=== PATIENT | male | born 1990 | race Caucasian/White ===

== ENCOUNTER 2017-12-01 17:06 | Emergency (ER) | payer BC ==
[~2017-12-01] VITALS: Ht 185.4 cm; Wt 72.6 kg
[2017-12-01 17:28] VITALS: BP 131/97
[2017-12-01 18:42] LABS: BASOPHILS % (AUTO) 0.6 % (0.0-2.0); EOSINOPHILS # (AUTO) 0.2 K/uL (0-0.4); EOSINOPHILS % (AUTO) 1.9 % (0.0-4.0); HEMATOCRIT 46.8 % (36-52); HEMOGLOBIN 15.7 g/dL (12.0-18.0); LYMPHOCYTES # (AUTO) 1.8 K/uL (2.0-11.5); LYMPHOCYTES % (AUTO) 22.2 % (20.5-51.1); MEAN CORPUSCULAR HEMOGLOBIN 29 pg (27-31); MEAN CORPUSCULAR HGB CONC 34 g/dL (33-37); MEAN CORPUSCULAR VOLUME 87.7 fL (80-94); MONOCYTES # (AUTO) 0.9 K/uL (0.8-1.0); MONOCYTES % (AUTO) 11.8 % (1.7-9.3); NEUTROPHILS # (AUTO) 5.1 K/uL (1.8-7.7); NEUTROPHILS % (AUTO) 63.5 % (42.2-75.2); PLATELET COUNT (AUTO) 205 K/uL (140-450); RED BLOOD CELL COUNT(AUTO) 5.34 MIL/uL (4.20-6.10); RED CELL DISTRIBUTION WIDTH 13.3 % (11.6-13.7)
[2017-12-01 19:03] LABS: ALBUMIN 4.7 g/dL (3.4-5.0); ANION GAP 14.4 (8-16); CARBON DIOXIDE 23.5 mmol/L (21-32); POTASSIUM 3.9 mmol/L (3.5-5.1); TOTAL BILIRUBIN 3.8 mg/dL (0.0-1.0)
--- NOTE | 2017-12-01 19:45 | NUR ---
PT AMBULATED TO ED BED 11
--- NOTE | 2017-12-01 19:45 | NUR ---
26/M CAME IN W C/O SEVERAL EPISODES OF N/V/D X 2 DAYS. PT DENIES ANY PAIN AT THIS TIME. BS ACTIVE X4, ABD SOFT, ROUND, -TENDERNESS. DENIES FEVER/CHILLS. PMH: DEGENERATIVE JOINT DISEASE.
[2017-12-01] MEDS ORDERED: ONDANSETRON 4 MG ODT PO ONE (20:40)
--- NOTE | 2017-12-01 22:00 | NUR ---
Patient discharged with v/s stable. Written and verbal after care instructions given and explained. Patient alert, oriented and verbalized understanding of instructions. Ambulatory with steady gait. All questions addressed prior to discharge. ID band removed. Patient advised to follow up with PMD. Rx of ZOFRAN 4 MG ODT given. Patient educated on indication of medication including possible reaction and side effects. Opportunity to ask questions provided and answered.
[2017-12-01 22:06] VITALS: BP 129/60
== END 2017-12-01 22:00 | disposition home or self-care (01) ==
LOC: MED 17:06
DX: E80.6 Other disorders of bilirubin metabolism (principal); R11.0 Nausea; F17.200 Nicotine dependence, unspecified, uncomplicated; F12.10 Cannabis abuse, uncomplicated
CPT/HCPCS: 36415; 76705; 80053; 81002; 83690; 85025; 99285; Q0092; S0119

== ENCOUNTER 2017-12-20 17:49 | Emergency (ER) | payer BC ==
[~2017-12-20] VITALS: Ht 185.4 cm; Wt 72.6 kg
--- NOTE | 2017-12-20 18:05 | NUR ---
PT AMBULATES TO BED 11
[2017-12-20 18:11] VITALS: BP 142/80
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
--- NOTE | 2017-12-20 18:31 | NUR ---
PATIENT MOVED TO CHAIR E
--- NOTE | 2017-12-20 19:14 | NUR ---
REPORT GIVEN TO VU GARCIA.
--- NOTE | 2017-12-20 20:09 | NUR ---
PT RETURNED FROM XRAY VIA WHEELCHAIR.
[2017-12-20] MEDS ORDERED: KETOROLAC 30 MG/ML VIAL IM ONE (20:20)
[2017-12-20 20:50] VITALS: BP 138/84
--- NOTE | 2017-12-20 20:50 | NUR ---
Patient discharged with v/s stable. Written and verbal after care instructions given and explained. Patient alert, oriented and verbalized understanding of instructions. Ambulatory with steady gait. All questions addressed prior to discharge. ID band removed. Patient advised to follow up with PMD. Rx of MOTRIN AND TRAMADOL given. Patient educated on indication of medication including possible reaction and side effects. Opportunity to ask questions provided and answered.
== END 2017-12-20 20:50 | disposition home or self-care (01) ==
LOC: MED 17:49
DX: S20.212A Contusion of left front wall of thorax, initial encounter (principal); W23.0XXA Caught, crushed, jammed, or pinched between moving objects, initial encounter; Y93.01 Activity, walking, marching and hiking; Y92.89 Other specified places as the place of occurrence of the external cause; Y99.8 Other external cause status
CPT/HCPCS: 71101; 96372; 99284; J1885

== ENCOUNTER 2018-11-21 13:54 | Emergency (ER) | payer BC, MEDICAID ==
[~2018-11-21] VITALS: Ht 185.4 cm; Wt 84.6 kg
[2018-11-21 13:58] VITALS: BP 155/91
--- NOTE | 2018-11-21 14:05 | NUR ---
PT AMBULATED TO LOBBY AT THIS TIME W/ VSS.
--- NOTE | 2018-11-21 14:55 | NUR ---
Patient ambulated to bed 12. RN evaluating patient at bedside.
[2018-11-21] MEDS ORDERED: KETOROLAC 30 MG/ML VIAL IM ONE (15:10)
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
[2018-11-21 15:50] VITALS: BP 124/86
== END 2018-11-21 15:50 | disposition home or self-care (01) ==
LOC: MED 13:54
DX: S39.012A Strain of muscle, fascia and tendon of lower back, initial encounter (principal); S80.02XA Contusion of left knee, initial encounter; S00.81XA Abrasion of other part of head, initial encounter; R10.9 Unspecified abdominal pain; R03.0 Elevated blood-pressure reading, without diagnosis of hypertension; V49.59XA Passenger injured in collision with other motor vehicles in traffic accident, initial encounter; W22.10XA Striking against or struck by unspecified automobile airbag, initial encounter; Y93.89 Activity, other specified; Y92.89 Other specified places as the place of occurrence of the external cause; Y99.8 Other external cause status
CPT/HCPCS: 72110; 73562; 96372; 99283; J1885

== ENCOUNTER 2019-03-01 10:56 | Emergency (ER) | payer SELFPAY ==
[~2019-03-01] VITALS: Ht 185.4 cm; Wt 80.7 kg
[2019-03-01 11:01] VITALS: BP 123/80
--- NOTE | 2019-03-01 11:15 | NUR ---
C/O DIARRHEA & NAUSEA STARTING THIS MORNING X 2AM. DENIES VOMITING, BLOOD IN DIARRHEA, OR PAIN. PT REPORTS THAT FAMILY HAS SIMILAR S/S. VSS. PT ALERT AND AWAKE. BED IS DOWN, LOCKED, BED RAIL X 1, ERMD TO SEE PT. HX: NONE RX: NONE
--- NOTE | 2019-03-01 11:17 | NUR ---
PT AMB TO RESTROOM WITH STEADY GAIT
--- NOTE | 2019-03-01 11:21 | NUR ---
PT UNABLE TO GIVE URINE AT THIS TIME, STATES HE USED THE RESTROOM BEFORE BEING TRIAGED
--- NOTE | 2019-03-01 11:33 | NUR ---
ABDOMEN SOFT AND FLAT, NON-DISTENDED AND NON-TENDER. BOWEL SOUNDS ACTIVE IN ALL 4 QUADRANTS. PT DENIES ABDOMINAL PAIN
--- NOTE | 2019-03-01 11:35 | NUR ---
DR MYERS AT BEDSIDE
[2019-03-01] MEDS ORDERED: ONDANSETRON 4 MG ODT PO ONE (11:50)
--- NOTE | 2019-03-01 11:58 | NUR ---
ZOFRAN ADMINISTERED PO. PT GAVE URINE SAMPLE, WALKED DIRECTLY TO LAB
[2019-03-01 12:05] LABS: APPEARANCE,URINE CLEAR (CLEAR); BILIRUBIN,URINE 1+ (NEGATIVE); BLOOD, URINE NEGATIVE (NEGATIVE); COLOR,URINE YELLOW (YELLOW); LEUKOCYTE ESTERASE ,URINE NEGATIVE (NEGATIVE); NITRITE, URINE NEGATIVE (NEGATIVE); PH,URINE 5.5 (5.0-9.0); UGLUCOSE NEGATIVE (NEGATIVE)
--- NOTE | 2019-03-01 12:28 | NUR ---
PT STATES HE NO LONGER HAS NAUSEA
[2019-03-01 12:29] VITALS: BP 115/77
--- NOTE | 2019-03-01 12:29 | NUR ---
Patient discharged with v/s stable. Written and verbal after care instructions given and explained REGARDING DIARRHEA. Patient alert, oriented and verbalized understanding of instructions. Ambulatory with steady gait. All questions addressed prior to discharge. ID band removed. Patient advised to follow up with PMD. Rx of ZOFRAN given. Patient educated on indication of medication including possible reaction and side effects. Opportunity to ask questions provided and answered. PT INSTRUCTED THAT DIARRHEA CAN LAST UP TO 2-3 DAYS PT GIVEN EXCUSE FFROM WORK THROUGH THE February
[2019-03-01 12:38] LABS: RBC,URINE 0 /HPF (0-5); WBC,URINE 0 /HPF (0-5)
== END 2019-03-01 12:29 | disposition home or self-care (01) ==
LOC: MED 10:56
DX: R19.7 Diarrhea, unspecified (principal); J34.89 Other specified disorders of nose and nasal sinuses
CPT/HCPCS: 81001; 99283; Q0162

== ENCOUNTER 2019-09-17 17:34 | Emergency (ER) | payer SELFPAY ==
[~2019-09-17] VITALS: Ht 185.4 cm; Wt 81.6 kg
[2019-09-17 17:38] VITALS: BP 140/72
--- NOTE | 2019-09-17 17:46 | NUR ---
NO ERYTHEMA NOTED ON SKIN, SLIGHT "BUMP" NOTED ON RIGHT LOWER SIDE BACK AREA.
--- NOTE | 2019-09-17 17:46 | NUR ---
28 Y/O M C/C RIGHT LOWER BACK PAIN X 1 WEEK. PER PT 11/14 PAIN, PRESSURE, NON RADIATING. DENIES TRAUMA, BURNING SENSATION WHEN URINATING. TAKEN TYLENOL OTC NO RELIEF. NKA. HX DEGENERATIVE BONE DISEASE. NO RX. NO N/V/D.
[2019-09-17] MEDS ORDERED: KETOROLAC 30 MG/ML VIAL IM ONE (17:55)
[2019-09-17 19:13] VITALS: BP 140/72
== END 2019-09-17 19:13 | disposition home or self-care (01) ==
LOC: MED 17:34
DX: S39.012A Strain of muscle, fascia and tendon of lower back, initial encounter (principal); Z98.890 Other specified postprocedural states; W20.8XXA Other cause of strike by thrown, projected or falling object, initial encounter; Y93.89 Activity, other specified; Y92.89 Other specified places as the place of occurrence of the external cause; Y99.8 Other external cause status
CPT/HCPCS: 72100; 96372; 99283; J1885

== ENCOUNTER 2019-11-08 16:57 | Emergency (ER) | payer SELFPAY ==
[~2019-11-08] VITALS: Ht 182.9 cm; Wt 83.5 kg
[2019-11-08 17:02] VITALS: BP 138/91
--- NOTE | 2019-11-08 17:05 | NUR ---
PT AMBULATED TO LOBBY
--- NOTE | 2019-11-08 17:37 | NUR ---
PT AMBULATED TO CHAIR A.
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
[2019-11-08] MEDS ORDERED: BACITRACIN OINT 500 UNITS/GM PKT TP ONE (17:45)
--- NOTE | 2019-11-08 17:48 | NUR ---
BACITRACIN APPLIED TO PTS RT RING FINGER ABRASION
--- NOTE | 2019-11-08 18:03 | NUR ---
PT RIGHT RING FINGER PLACED IN ALUMINUM FINGER SPLINT AND WRAPPED WITH 2" GAUZE ROLL.
[2019-11-08 18:05] VITALS: BP 122/85
--- NOTE | 2019-11-08 18:05 | NUR ---
Patient discharged with v/s stable. Written and verbal after care instructions given and explained. Patient alert, oriented and verbalized understanding of instructions. Ambulatory with steady gait. All questions addressed prior to discharge. ID band removed. Patient advised to follow up with PMD. Rx of Ibuprofen and Bacitracin given. Patient educated on indication of medication including possible reaction and side effects. Opportunity to ask questions provided and answered.
== END 2019-11-08 18:05 | disposition home or self-care (01) ==
LOC: MED 16:57
DX: S60.041A Contusion of right ring finger without damage to nail, initial encounter (principal); S60.051A Contusion of right little finger without damage to nail, initial encounter; W22.8XXA Striking against or struck by other objects, initial encounter; Y93.89 Activity, other specified; Y92.89 Other specified places as the place of occurrence of the external cause; Y99.8 Other external cause status
CPT/HCPCS: 73130; 99283

== ENCOUNTER 2019-12-27 10:41 | Emergency (ER) | payer SELFPAY ==
[~2019-12-27] VITALS: Ht 182.9 cm; Wt 81.6 kg
[2019-12-27 10:44] VITALS: BP 127/77
--- NOTE | 2019-12-27 10:53 | NUR ---
29/M C/O PROGRESSIVELY WORSENING DECREASED HEARING X 2 WEEKS, R>L. PT STATES "I'VE BEEN MISSING MY MORNING ALARMS FOR WORK". ALSO STATES NASAL CONGESTION AND RHINORRHEA, STATES "MAYBE I HAVE SOME SORT OF INFECTION THAT IS CAUSING THE HEARING LOSS, THAT'S HAPPENED BEFORE". PT DENIES PAIN, HEADACHE, DIZZINESS, HEAD TRAUMA OR INJURY. VSS, EUPNIC, AAOX4, AMBULATORY. HX DEGENERATIVE BONE DISEASE
[2019-12-27 11:54] VITALS: BP 127/77
--- NOTE | 2019-12-27 11:54 | NUR ---
Patient discharged with v/s stable. Written and verbal after care instructions given and explained. Patient alert, oriented and verbalized understanding of instructions. Ambulatory with steady gait. All questions addressed prior to discharge. ID band removed. Patient advised to follow up with PMD. Rx of PENICILLIN VK, SUDAFED, FLONASE given. Patient educated on indication of medication including possible reaction and side effects. Opportunity to ask questions provided and answered.
== END 2019-12-27 11:54 | disposition home or self-care (01) ==
LOC: MED 10:41
DX: H66.93 Otitis media, unspecified, bilateral (principal)
CPT/HCPCS: 99283

== ENCOUNTER 2020-07-16 11:06 | Emergency (ER) | payer MEDICAID ==
[~2020-07-16] VITALS: Ht 185.4 cm; Wt 92.5 kg
[2020-07-16 11:09] VITALS: BP 136/71
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
[2020-07-16] MEDS ORDERED: ACETAMINOPHEN EXTRA STRENGTH 500 MG TAB PO ONE (11:20)
[2020-07-16] MEDS ORDERED: ALUMINUM HYD/MAG/SIMETHICONE 30 ML UDC PO ONE (11:20)
[2020-07-16] MEDS ORDERED: LIDOCAINE VISCOUS 2% 20 ML UDC PO ONE (11:20)
[2020-07-16] MEDS ORDERED: FAMO-90 PO (12:12)
[2020-07-16] MEDS ORDERED: MAG355OR2 PO (12:12)
[2020-07-16 12:22] VITALS: BP 136/71
--- NOTE | 2020-07-16 12:22 | NUR ---
Patient discharged with v/s stable. Written and verbal after care instructions given and explained. Patient alert, oriented and verbalized understanding of instructions. Ambulatory with steady gait. All questions addressed prior to discharge. ID band removed. Patient advised to follow up with PMD. Rx of MYLANTA, PEPCID given. Patient educated on indication of medication including possible reaction and side effects. Opportunity to ask questions provided and answered.
== END 2020-07-16 12:22 | disposition home or self-care (01) ==
LOC: MED 11:06
DX: K21.9 Gastro-esophageal reflux disease without esophagitis (principal); F17.210 Nicotine dependence, cigarettes, uncomplicated
CPT/HCPCS: 71045; 93005; 99283

== ENCOUNTER 2021-01-15 13:22 | Emergency (ER) | payer MEDICAID ==
[~2021-01-15] VITALS: Ht 182.9 cm; Wt 95.3 kg
[~2021-01-15 13:22] MED LIST: FAMO-90 PO; MAG355OR2 PO
[2021-01-15 13:43] VITALS: BP 126/72
[2021-01-15] MEDS ORDERED: BACTO TP (14:49)
[2021-01-15] MEDS ORDERED: CEPH-588 PO (14:49)
[2021-01-15] MEDS ORDERED: IBUP-2213 PO (14:49)
--- NOTE | 2021-01-15 18:00 | NUR ---
no need nursing interventions. seen & treated by paul aly.
[2021-01-15 18:06] VITALS: BP 126/72
--- NOTE | 2021-01-15 18:06 | NUR ---
Patient discharged without signing paper. Written and verbal after care instructions given and explained. Patient alert, oriented and verbalized understanding of instructions. Ambulatory with steady gait. All questions addressed prior to discharge. ID band removed. Patient advised to follow up with PMD. Rx of MUPIROCIN, CEPHALEXIN & IBUPROFRN given. Patient educated on indication of medication including possible reaction and side effects. Opportunity to ask questions provided and answered.
== END 2021-01-15 18:06 | disposition home or self-care (01) ==
LOC: MED 13:22
DX: L01.00 Impetigo, unspecified (principal); I10 Essential (primary) hypertension; Z79.899 Other long term (current) drug therapy; Z79.1 Long term (current) use of non-steroidal anti-inflammatories (NSAID); Z79.2 Long term (current) use of antibiotics
CPT/HCPCS: 99283

== ENCOUNTER 2021-05-31 10:02 | Emergency (ER) | payer BC, MEDICAID, OTHER ==
[~2021-05-31] VITALS: Ht 185.4 cm; Wt 95.3 kg
[~2021-05-31 10:02] MED LIST changes: +BACTO TP; +CEPH-588 PO; +IBUP-2213 PO
[2021-05-31 10:14] VITALS: BP 133/78
--- NOTE | 2021-05-31 10:22 | NUR ---
PT SENT TO LOBBY
[2021-05-31] MEDS ORDERED: KETOROLAC 30 MG/ML VIAL IM ONE (10:50)
--- NOTE | 2021-05-31 10:55 | NUR ---
30/M BIB SELF WITH C/O CHEST PAIN FOR 2 MONTHS. DENIES RECENT INJURY OR TRAUMA, STATES PAIN HAS BEEN WORSENING, DENIES SOB, NUMBNESS. REPORTS TAKING NAPROSYN, TYLENOL, ADVIL WITH NO RELIEF. PATIENT STATES PAIN IS NONRADIATING, 8/10 SHARP, STATES PAIN COMES ON AT RANDOM TIMES WHETHER AT REST OR MOVEMENT.
[2021-05-31] MEDS ORDERED: IBUP-2213 PO (11:29)
[2021-05-31] MEDS ORDERED: DICL100G5 TP (11:29)
[2021-05-31] MEDS ORDERED: CYCL-654 PO (11:32)
--- NOTE | 2021-05-31 11:47 | NUR ---
Patient discharged with v/s stable. Written and verbal after care instructions ABOUT COSTOCONDRITIS given and explained. Patient alert, oriented and verbalized understanding of instructions. Ambulatory with steady gait. All questions addressed prior to discharge. ID band removed. Patient advised to follow up with PMD. Rx of IBUPROFEN AND DICLOFENAC SODIUM given. Patient educated on indication of medication including possible reaction and side effects. Opportunity to ask questions provided and answered.
== END 2021-05-31 11:47 | disposition home or self-care (01) ==
LOC: MED 10:02
DX: R07.89 Other chest pain (principal); R06.02 Shortness of breath
CPT/HCPCS: 71045; 93005; 96372; 99283; J1885